=== PATIENT | female | born 1950 | race Caucasian/White ===

== ENCOUNTER 2016-08-02 06:15 | Day surgery (SDC) | payer BC ==
[2016-07-31 13:00] VITALS: BMI 26.6
[2016-08-02] MEDS ORDERED: DEXAMETHASONE SOD PHOSPHATE/PF 10 MG/ML SDV ONE (06:38)
[2016-08-02] MEDS ORDERED: MIDAZOLAM HCL 2 MG/2 ML SINGLE DOSE VIAL ONE (06:38)
[2016-08-02] MEDS ORDERED: ROPIVACAINE HCL 0.5% 30ML VIAL ONE (06:39)
[2016-08-02] MEDS ORDERED: PROPOFOL 20 ML ONE ×2 (07:08→07:09)
[2016-08-02] MEDS ORDERED: LIDOCAINE HCL/PF 2% SDV 5ML VIAL ONE (07:14)
[2016-08-02] MEDS ORDERED: BUPIVACAINE HCL 0.25% 125 MG/50 ML VIAL ONE (07:21)
[2016-08-02] MEDS ORDERED: GUM MASTIC/STORAX/MSAL/ALCOHOL 1 DRP DROPSBTL MC ONE (07:25)
[2016-08-02] MEDS ORDERED: ONDANSETRON 4 MG/2 ML VIAL ONE (08:16)
[2016-08-02] MEDS ORDERED: DEXAMETHASONE SOD PHOSPHATE 4 MG/1 ML VIAL ONE (08:16)
[2016-08-02] MEDS ORDERED: KETOROLAC TROMETHAMINE 30 MG/1 ML VIAL ONE (08:16)
[2016-08-02] MEDS ORDERED: oxyCODONE HCL 5 MG TABLET PO PRN (09:06)
[2016-08-02] MEDS ORDERED: ACETAMINOPHEN INJECTION 100 ML IVPB ONE (09:11)
[2016-08-02] MEDS ORDERED: LACTATED RINGERS SOLUTION 1,000 ML IV SCH (09:15)
[2016-08-02] MEDS ORDERED: ACETAMINOPHEN 1000 MG/100 ML VIAL (NON FORMULARY) IVPB ONE (09:24)
[2016-08-02] MEDS ORDERED: ceFAZolin SODIUM 1 GM VIAL ONE (09:46)
[2016-08-02] MEDS ORDERED: ONDANSETRON 4 MG/2 ML VIAL IVPUSH PRN (10:16)
[2016-08-02] MEDS ORDERED: LORAZEPAM CARPU-JECT 2 MG/ML DISP.SYRIN IVPUSH PRN (10:16)
[2016-08-02] MEDS ORDERED: PROMETHAZINE HCL 25 MG/1 ML VIAL IVPUSH PRN (10:17)
[2016-08-02 11:31] VITALS: TEMP 97.7
[2016-08-02 12:55] VITALS: BP 122/67; PULSE 74
--- NOTE | 2016-08-03 09:25 | PN ---
Progress Note (short form) - Note Progress Note: f/u phone call. s/p axillary blk pt say blk is receding. can move all finger and elblow and arm min pain, tolerating orals no further f/u required
--- NOTE | 2016-08-03 15:29 | OP ---
DATE OF OPERATION: 08/02/2016 PREOPERATIVE DIAGNOSIS: Left comminuted, displaced distal radius fracture. POSTOPERATIVE DIAGNOSIS: Left comminuted, displaced distal radius fracture. OPERATIVE PROCEDURE: 1. Open reduction internal fixation of left comminuted, displaced intra-articular distal radius fracture with internal fixation of 3 or more fragments. 2. Left brachioradialis tenotomy. SURGEON: Kj Garcia MD. PHOTOCOMPOSITION KEYBOARD OPERATOR: ANDREW Mares. ANESTHESIA: Regional. COMPLICATIONS: None. ESTIMATED BLOOD LOSS: Minimal. INDICATIONS: The patient is a 65-year-old female with the above findings, indicated for operative treatment. Risks, benefits, and alternatives were discussed with the patient at length and the proper informed consent was obtained. PROCEDURE: After proper identification of the patient and the correct operative site, the patient was brought to the operating room and placed supine on the operating table. All bony prominences were well padded. Sedation and regional anesthesia were given. The left upper extremity was prepped and draped in the usual sterile fashion. A well-padded tourniquet was placed over the sterile prep. Esmarch bandage was used to exsanguinate the left upper extremity. The tourniquet was placed at 250 mmHg. A longitudinal incision was made over the volar aspect of the wrist. The incision was taken sharply through the skin with blunt and sharp dissection through the subcutaneous tissues. The sheath of the flexor carpi radialis tendon was divided and the flexor carpi radialis tendon, along with the contents of the carpal canal were bluntly and gently retracted in an ulnarward direction for the remainder of the procedure. Pronator quadratus was divided longitudinally. The fascia was then exposed and found to have an intra-articular split as well as displacement dorsally. The fracture was attempted to be reduced. However, the radial styloid fragment was unable to be reduced due to pull of the brachioradialis as well as dorsal early healing. Therefore, brachioradialis subperiosteal tenotomy was performed. In addition, a K-wire was placed percutaneously dorsally for a percutaneous osteoclasis to remove any early healing. This allowed excellent reduction of the fracture and this was secured volarly with an Acumed Acu-Loc 2 distal radius plate with volar distal locking screws and proximal nonlocking bicortical screws. This provided secure stable fixation in satisfactory position confirmed radiographically in multiple planes. Distal radial and ulnar joint and scapholunate intervals were stressed and found to be stable. The wound was irrigated with saline and repaired with 4-0 Vicryl and 4-0 Biosyn sutures. Steri-Strips, a sterile dressing, and a volar wrist splint were placed. The patient was reversed from anesthesia and brought to the recovery room in stable condition. Payam Menchaca, the boiler assistant operator, was integral throughout this procedure. Procedure could not have been performed without a skilled operative boiler assistant operator. He was especially integral during the portion of the procedure where reduction needed to be held manually and hardware needed to be placed at the same time. This could not have been performed with a mechanical test technician or any other staff within the operating room. KJ GARCIA M.D. [id number]
== END 2016-08-02 12:15 | disposition home or self-care (01) ==
LOC: FASU 06:15
PROVIDERS: ATTEND Orthopaedic Surgery Hand Surgery
PROC: 0LN60ZZ Release Left Lower Arm and Wrist Tendon, Open Approach (ICD-10-PCS; 2016-08-02)
PROC: 0PSJ04Z Reposition Left Radius with Internal Fixation Device, Open Approach (ICD-10-PCS; principal; 2016-08-02 08:00)
DX: S52.532A Colles' fracture of left radius, initial encounter for closed fracture (principal); X58.XXXA Exposure to other specified factors, initial encounter; Y93.9 Activity, unspecified; Y92.9 Unspecified place or not applicable
CPT/HCPCS: 73110-TC-LT; 94760